=== PATIENT | male | born 1970 | race Caucasian/White ===

== ENCOUNTER 2018-11-14 19:19 | Emergency (ER) | payer MEDICAID ==
[~2018-11-14] VITALS: Ht 172.7 cm; Wt 94.5 kg
[2018-11-14 19:31] VITALS: BP 129/69; PULSE 79; RESP 18; Ht 172.7 cm; Wt 94.5 kg
[2018-11-14] MEDS ORDERED: KETOROLAC 60 MG INJ IM STA (21:15)
[2018-11-14] MEDS ORDERED: DEXAMETHASONE 10 MG/ML 1 ML INJ IM ONE (21:30)
[2018-11-14] MEDS ORDERED: IBUP-1542 PO (22:33)
[2018-11-14] MEDS ORDERED: CETI10TA19 PO (22:33)
[2018-11-14] MEDS ORDERED: FLUT16SP17 NASAL (22:33)
[2018-11-14] MEDS ORDERED: AMOX1TAB9 PO (22:33)
--- NOTE | 2018-11-15 00:55 | ERD ---
ER Documentation Chief Complaint Chief Complaint MURGUIA, BODY ACHES X'S 1 MONTH HPI History of Present Illness: 48-year-old male with history of diabetes and hyperlipidemia coming in today with complaint of headache and body aches that have been present for 1 month. Associated symptoms include rhinorrhea and ear pain. Denies fever, chills, malaise, shortness of breath, chest pain, dizziness. Patient admits to being a smoker At home pharmacological/nonpharmacological treatment for symptoms: Denies Denies social concerns; Denies recent foreign travel ROS All systems reviewed and are negative except as per history of present illness. Medications Home Meds Active Scripts Ibuprofen* (Motrin*) 600 Mg Tab, 600 MG PO Q6H PRN for PAIN AND OR ELEVATED TEMP, #30 TAB Prov:ALBERTA VELASCO NP 11/14/18 Fluticasone Propionate* (Fluticasone Propionate* Nasal) 50 Mcg/[place] - 16 Gm Sp ray.susp, 1 SPRAY NASAL DAILY for NASAL CONGESTION, #1 BOTTLE TO EACH NOSTRIL Prov:ALBERTA VELASCO NP 11/14/18 Cetirizine Hcl* (Cetirizine Hcl*) 10 Mg Tablet, 10 MG PO DAILY for ALLERGIES/SINUS/COUGH, #30 TAB Prov:ALBERTA VELASCO NP 11/14/18 Amoxicillin/Potassium Clav (Amox-Clav 500-125 mg Tablet) 500-125 mg Tab, 1 TAB PO BID for CHRONIC SINUSITIS for 14 Days, TAB Prov:ALBERTA VELASCO NP 11/14/18 Allergies Allergies: Coded Allergies: tetracycline (Verified Allergy, Unknown, 11/14/18) PMhx/Soc Medical and Surgical Hx: pt denies Medical Hx, pt denies Surgical Hx Hx Alcohol Use: Yes Hx Substance Use: No Hx Tobacco Use: No Smoking Status: Current every day smoker FmHx Family History: No diabetes, No coronary disease Physical Exam Vitals Vital Signs Date Temp Pulse Resp B/P (MAP) Pulse Ox O2 O2 Flow FiO2 Time Delivery Rate 11/14/18 97.3 79 18 129/69 97 19:31 (89) Physical Exam Const: No acute distress Head: Atraumatic, tenderness to palpation over frontal maxillary sinuses Eyes: Normal Conjunctiva ENT: Normal External Ears. Cerumen impaction noted to right ear. Left tympanic membrane without erythema, no bulging, no perforation. Oropharynx clear. Neck: Full range of motion. No meningismus. Resp: Clear to auscultation bilaterally Cardio: Regular rate and rhythm, no murmurs Abd: Soft, non tender, non distended. Normal bowel sounds Skin: No petechiae or rashes Back: No midline or flank tenderness Ext: No cyanosis, or edema Neur: Awake and alert Psych: Normal Mood and Affect Results 24 hrs Current Medications Medications Dose Sig/Ash Start Time Status Last (Trade) Ordered Route PRN Stop Time Admin Dose Reason Admin 10 mg ONCE ONCE 11/14/18 DC 11/14/18 Dexamethasone IM 21:30 11/14/18 21:42 (Decadron) 21:31 Ketorolac 60 mg ONCE STAT 11/14/18 DC 11/14/18 Tromethamine IM 21:15 11/14/18 21:42 (Toradol) 21:16 Procedures/MDM ED course includes a thorough examination and history. Medications: Dexamethasone Imaging: Labs: ED course includes ear irrigation. Ear irrigation complete. Cerumen impaction no longer noted to right ear. Tympanic membrane not erythematous without perforation. Low suspicion for life-threatening medical emergency. presenting with constellation of symptoms likely representing chronic sinusitis/cerumen impaction as characterized by history, physical exam findings. Patient reassessment: No respiratory distress, otherwise relatively well appearing and nontoxic. Questions answered. Disposition given. Patient educated on diagnoses, prescriptions, follow-up care, return precautions. Strict return precautions given for worsening condition; questions answered discharge. Disposition for discharge with followup in 2 days with PCP/clinic. Departure Diagnosis: Primary Impression: Chronic maxillary sinusitis Additional Impressions: Chronic frontal sinusitis Impacted cerumen of right ear Condition: Stable Patient Instructions: Cerumen Impaction, Home Care, Sinusitis, Abx Tx, Allergic Rhinitis (Child) Referrals: COMMUNITY CLINICS YOU HAVE RECEIVED A MEDICAL SCREENING EXAM AND THE RESULTS INDICATE THAT YOU DO NOT HAVE A CONDITION THAT REQUIRES URGENT TREATMENT IN THE EMERGENCY DEPARTMENT. FURTHER EVALUATION AND TREATMENT OF YOUR CONDITION CAN WAIT UNTIL YOU ARE SEEN IN YOUR DOCTORS OFFICE WITHIN THE NEXT 1-2 DAYS. IT IS YOUR RESPONSIBILITY TO MAKE AN APPOINTMENT FOR FOLOW-UP CARE. IF YOU HAVE A PRIMARY DOCTOR --you should call your primary doctor and schedule an appointment IF YOU DO NOT HAVE A PRIMARY DOCTOR YOU CAN CALL OUR PHYSICIAN REFERRAL HOTLINE AT IF YOU CAN NOT AFFORD TO SEE A PHYSICIAN YOU CAN CHOSE FROM THE FOLLOWING [facility] [address] [facility] [address] [facility] [address] [facility] [address] [facility] [facility] [address] [facility]. [facility] [address] [facility]. [facility] [address] [facility]. [facility] YOU HAVE RECEIVED A MEDICAL SCREENING EXAM AND THE RESULTS INDICATE THAT YOU DO NOT HAVE A CONDITION THAT REQUIRES URGENT TREATMENT IN THE EMERGENCY DEPARTMENT. FURTHER EVALUATION AND TREATMENT OF YOUR CONDITION CAN WAIT UNTIL YOU ARE SEEN IN YOUR DOCTORS OFFICE WITHIN THE NEXT 1-2 DAYS. IT IS YOUR RESPONSIBILITY TO MAKE AN APPOINTMENT FOR FOLOW-UP CARE. IF YOU HAVE A PRIMARY DOCTOR --you should call your primary doctor and schedule and appointment IF YOU DO NOT HAVE A PRIMARY DOCTOR YOU CAN CALL OUR PHYSICIAN REFERRAL HOTLINE AT . IF YOU CAN NOT AFFORD TO SEE A PHYSICIAN YOU CAN CHOSE FROM THE FOLLOWING [facility] INSTITUTIONS: [facility] [address] [place] [address] [facility] [address] [place] [address] [facility] [address] [place] [address] Additional Instructions: Muchas leeroy por permitirnos participar en roman cuidado. Roman kam y seguridad es nuestra principal prioridad en [facility]. Es importante leer todas las instrucciones de erum y la educacin que se proporcionan en roman paquete de erum. Llame a roman mdico de atencin primaria MAANA para anna fabian andrew los prximos 2 a 4 alva y lleve toda la informacin y los medicamentos recetados. Llene las recetas y siga exactamente las instrucciones de la etiqueta. Si los sntomas empeoran y roman proveedor no est disponible, regrese inmediatamente al Departamento de Emergencias. ---- Thank you very much for allowing us to participate in your care. Your health and safety is our top priority at [facility]. It is important to read all discharge instructions and education provided in your discharge packet. Call your primary care doctor TOMORROW for an appointment during the next 2-4 days and bring all the information and medications prescribed. Have prescriptions filled and follow precisely the directions on the label. If the symptoms get worse and your provider is unavailable, return to the Emergency Department immediately. ALBERTA VELASCO NP November 15, 2018 00:55
== END 2018-11-14 23:01 | disposition home or self-care (01) ==
LOC: FTE 19:19
DX: J32.8 Other chronic sinusitis (principal); H61.21 Impacted cerumen, right ear; F17.210 Nicotine dependence, cigarettes, uncomplicated; E11.9 Type 2 diabetes mellitus without complications
CPT/HCPCS: 69209; 96372; J1100; J1885; Z7502